=== PATIENT | female | born 1975 | race Caucasian/White ===

== ENCOUNTER → 2025-03-20 | Outpatient (CLI) | payer BC, SELFPAY ==
[2025-03-20 09:59] LABS: Free T4 (Free Thyroxine) 0.78 ng/dL (0.89-1.76); Thyroid Stimulating Hormone 25.47 uIU/mL (0.55-4.78)
[2025-03-20 10:39] LABS: Misc Send Out* See Sep Rpt
[2025-03-24 06:39] LABS: T3, Reverse, LC/MS/MS* 13 ng/dL (8-25); Thyroglobulin Antibodies* <1 IU/mL (< OR = 1); Thyroid Peroxidase Antibodies* 62 IU/mL (<9)
== END | disposition home or self-care (01) ==
LOC: COPL 09:00
PROVIDERS: PCP Registered Nurse; Referring Provider Registered Nurse; Visit Provider Registered Nurse
DX: E03.9 Hypothyroidism, unspecified (principal)
CPT/HCPCS: 36415; 84439; 84443; 84481; 84482; 86376; 86800